=== PATIENT | female | born 1970 | race Caucasian/White ===

== ENCOUNTER 2023-09-22 08:37 | Outpatient (CLI) | payer OTHER, SELFPAY ==
--- NOTE | ~2023-09-22 | XR_ITS ---
EXAMINATION: XR barium swallow DATE: 09/22/2023 09:16 INDICATION: Dysphagia TECHNIQUE: The patient drank thick barium, gas-producing crystals, and thin barium. Fluoroscopic spot radiographs of the hypopharynx and esophagus were obtained. Fluoroscopy exposure time was 1.7 minut es. A total of 1219 fluoroscopic images were recorded. Total DAP was 6.851 Gycm^2 COMPARISON: None. FINDINGS: The pharynx is symmetric and without evidence of mass lesion or mucosal irregularity. The e sophagus is normal without mass or stricture. Esophageal motility is normal. There is no hiatal herni a. There was no gastroesophageal reflux with provocative maneuvers. IMPRESSION: 1. Normal esophagram. Reviewed, dictated and finalized at location A. IMPRESSION: 1. Normal esophagram.
== END 2023-09-22 08:38 | disposition home or self-care (01) ==
PROVIDERS: PCP Family Medicine; Visit Provider Nurse Practitioner Family
DX: R13.10 Dysphagia, unspecified (principal)
CPT/HCPCS: 74220

== ENCOUNTER 2024-01-19 12:14 | Emergency (ER) | payer OTHER, SELFPAY ==
--- NOTE | ~2024-01-19 | XR_ITS ---
EXAMINATION: XR chest 2V DATE: 01/19/2024 12:49 INDICATION: Cough and wheezing. TECHNIQUE: Frontal and lateral views of the chest were obtained. COMPARISON: Chest 2 views 01/24/2017 FINDINGS: There is no pneumonia, pleural effusion, or pneumothorax. The heart size is normal. There i s a prominent left pericardial fat pad. IMPRESSION: 1. No acute cardiopulmonary disease. Reviewed, dictated and finalized at location A.
[2024-01-19 12:24] VITALS: BP 170/91; PULSE 101; RESP 18; TEMP 37.3; O2SAT 94
--- NOTE | 2024-01-19 12:35 | ED.URI ---
HPI - URI/Sore Throat General Chief Complaint: Upper Respiratory Infection Stated Complaint: Cough/Sinus Time Seen by Provider: 01/19/24 12:36 Source: patient, RN notes reviewed and old records reviewed Mode of arrival: ambulatory Limitations: no limitations History of Present Illness HPI Narrative: 53-year-old female presents to the [facility] with cough, sinus issues for 4-6 weeks. Has tried [id number] products no relief. Treatments prior to arrival: cold medicine Related Data Home Medications Medication Instructions Recorded Confirmed ibuprofen 600 mg tablet 600 mg PO TID 06/09/20 01/19/24 Allergies Allergy/AdvReac Type Severity Reaction Status Date / Time No Known Allergies Allergy Verified 01/19/24 12:20 Review of Systems Review of Systems: All systems reviewed & are unremarkable except as noted in HPI and below Constitutional: Constitutional: Reports no additional constitutional complaints Eyes: Eyes: Reports no additional eye complaints ENT: Reports as per HPI Cardiovascular: Cardiovascular: Reports no additional cardiovascular complaints, Denies chest pain and Denies dyspnea Respiratory: Respiratory: Reports as per HPI, Reports chest congestion, Reports cough, Denies dyspnea and Reports wheezing Gastrointestinal: Gastrointestinal: Reports no additional gastrointestinal complaints, Denies abdominal pain, Denies nausea and Denies vomiting Musculoskeletal: Musculoskeletal: Reports no additional musculoskeletal complaints Integumentary/Breasts: Skin/Breast: Reports system reviewed and no additional complaints, except as docu Neurologic: Reports system reviewed and no additional complaints, except as documented Psychiatric: Psychiatric: Reports no additional psychiatric complaints Allergic/Immunologic: Allergic/Immunologic: Reports no additional allergic/immunologic complaints PMFSH Past Medical History Medical History Allergies Anxiety Arthritis COPD (chronic obstructive pulmonary disease) Hypertension Neck pain Radiculopathy affecting upper extremity Surgical History Surgical History H/O carpal tunnel repair H/O prior ablation treatment Family History Family History Father Lung cancer Hypertension Mother Lung cancer COPD (chronic obstructive pulmonary disease) Sibling Thyroid disorder Grandparent Heart disease Cerebrovascular accident Social History Social History Smoking packs per day: 0.5 Smoking cigarettes per day: 10.0 Years smoked: 30 Smoking pack-years: 15.00 Smoking status: Current every day smoker Tobacco type: cigarettes Second hand tobacco smoke exposure: Yes Alcohol intake: current Alcohol use details: Social Substance use: never Substance use type: does not use Living arrangements: with family Occupation/Education: occupation Gender identity (if verbalized by the patient): Female Comments At the time of my signature, I reviewed and agree with the nursing past medical, surgical, social, and family history. There is no relevant family history pertinent to the patient complaint. Exam Const: General: cooperative, healthy appearing, comfortable, no acute distress, well developed, alert and well nourished Nutritional Appearance: well nourished Orientation/consciousness: patient oriented x3 Limitations: no limitations HENMT: Head: normal to inspection Ears: hearing grossly normal bilaterally and external ears normal Face/Nose/Sinus: Normal external nose present, Normal nares present, Normal nasal mucous membranes and turbinates present, normal facial exam and face symmetric Face and sinus: normal facial exam and face symmetric Eyes: General: appearance normal, both eyes and all related structures A
[2024-01-19] MEDS: ALBUTEROL SULFATE NEB 2.5 MG/3 ML INH INHALATION (12:55)
[2024-01-19] MEDS: IPRATROPIUM BR 0.02% INH SOLN 0.5 MG/2.5 ML VIAL INHALATION (12:57)
[2024-01-19 13:35] VITALS: BP 150/80; PULSE 92; RESP 20; O2SAT 92
== END 2024-01-19 13:47 | disposition home or self-care (01) ==
PROVIDERS: Emergency Provider Nurse Practitioner; PCP Family Medicine
DX: J40 Bronchitis, not specified as acute or chronic (principal); F17.210 Nicotine dependence, cigarettes, uncomplicated; J44.9 Chronic obstructive pulmonary disease, unspecified; I10 Essential (primary) hypertension; M19.90 Unspecified osteoarthritis, unspecified site
CPT/HCPCS: 71046; 94640; 99213; G0463

== ENCOUNTER 2024-03-11 13:41 | Outpatient (CLI) | payer OTHER, SELFPAY | END 2024-03-11 13:42 | disposition home or self-care (01) | LOC: ANHPFT 13:41 | PROVIDERS: PCP Family Medicine; Visit Provider Family Medicine | DX: J44.9 Chronic obstructive pulmonary disease, unspecified (principal) | CPT/HCPCS: 94060; 94726; 94729 ==

== ENCOUNTER 2024-04-26 12:31 | Outpatient (CLI) | payer OTHER, SELFPAY ==
--- NOTE | ~2024-04-26 | CT_ITS ---
CT Scan of the Chest without Contrast: Clinical Indication: COPD Technique: Contiguous sections were acquired throughout the chest without intravenous contrast. Dose reduction technique was used on this scan by utilizing automated exposure control and iterative recon struction technique. The dose-length product (DLP) was 175.57 mGy-cm. Findings: There is no evidence of any significant mediastinal, hilar or axillary lymphadenopathy. The mediastin al soft tissues appear normal. There is no evidence of pleural or pericardial effusion. The lungs are clear. No pulmonary nodules or infiltrates are noted. Probable minimal emphysema. Images through the upper abdomen reveal no abnormalities. Impression: Minimal emphysema. Clear lungs. Reviewed, dictated and finalized at location . RANCHER Impression: Minimal emphysema. Clear lungs.
== END 2024-04-26 12:32 | disposition home or self-care (01) ==
PROVIDERS: PCP Family Medicine; Visit Provider Student in an Organized Health Care Education/Training Program
DX: J44.9 Chronic obstructive pulmonary disease, unspecified (principal)
CPT/HCPCS: 71250

== ENCOUNTER 2024-05-06 15:30 | Outpatient (CLI) | payer OTHER, SELFPAY ==
[2024-05-06 16:38] LABS: Influenza A QL RT-PCR Negative (Negative); Influenza B QL RT-PCR Negative (Negative); RSV RNA, RT-PCR Negative (Negative); SARS-CoV-2 RNA PCR Negative (Negative)
== END 2024-05-06 15:31 | disposition home or self-care (01) ==
PROVIDERS: PCP Family Medicine; Visit Provider Family Medicine
DX: J06.9 Acute upper respiratory infection, unspecified (principal); Z20.822 Contact with and (suspected) exposure to COVID-19
CPT/HCPCS: 87637

== ENCOUNTER 2025-01-30 08:43 | Outpatient (CLI) | payer OTHER, SELFPAY ==
--- NOTE | 2025-01-30 08:50 | EST_ITS ---
Patient Info Name: Diandra Holder Age: 54 years : 1970 Gender: Female Ht: 63 in Wt: 160 lbs BSA: 1.82 m2 Exam Date: 01/30/2025 8:50 AM Patient Status: O Admit Date: 01/30/2025 Exam Type: CA stress test treadmill A treadmill exercise stress test was performed. Staff Attending Provider: Wero Diaz DO Exercise Technologist: Tonja Lam Summary 1. 1. Negative Dustin exercise stress test for ischemic ST changes by ECG criteria. 2. 2. Poor functional capacity, achieving 4.6 METs of workload. 3. 3. Baseline hypertension with hypertensive response to exercise. 4. 4. Rapid HR response to exercise. 5. 5. Appropriate HR recovery at 1 minute post exercise. 6. 6. No imaging with stress testing. 7. 7. Patient informed of the above results. Protocol: Dustin Stress ECG Details Stage: REST Duration (min): 0 min : 39 sec Speed (mph): 0.0 Grade (%): 0 HR (bpm): 99 SBP (mmHg): 145 DBP (mmHg): 94 METS: --- Stage: REST Duration (min): 10 min : 38 sec Speed (mph): 0.0 Grade (%): 0 HR (bpm): 100 SBP (mmHg): 145 DBP (mmHg): 94 METS: --- Stage: STAGE 1 Duration (min): 1 min : 0 sec Speed (mph): 1.7 Grade (%): 10 HR (bpm): 141 SBP (mmHg): 145 DBP (mmHg): 94 METS: --- Stage: STAGE 1 Duration (min): 2 min : 0 sec Speed (mph): 1.7 Grade (%): 10 HR (bpm): 159 SBP (mmHg): 145 DBP (mmHg): 94 METS: --- Stage: STAGE 1 Duration (min): 2 min : 0 sec Speed (mph): 1.7 Grade (%): 10 HR (bpm): 160 SBP (mmHg): 145 DBP (mmHg): 94 METS: --- Stage: RECOVERY Duration (min): 0 min : 59 sec Speed (mph): 0.0 Grade (%): 0 HR (bpm): 143 SBP (mmHg): 81 DBP (mmHg): 63 METS: --- Stage: RECOVERY Duration (min): 1 min : 59 sec Speed (mph): 0.0 Grade (%): 0 HR (bpm): 115 SBP (mmHg): 231 DBP (mmHg): 83 METS: --- Stage: RECOVERY Duration (min): 2 min : 59 sec Speed (mph): 0.0 Grade (%): 0 HR (bpm): 113 SBP (mmHg): 215 DBP (mmHg): 83 METS: --- Stage: RECOVERY Duration (min): 3 min : 59 sec Speed (mph): 0.0 Grade (%): 0 HR (bpm): 117 SBP (mmHg): 215 DBP (mmHg): 83 METS: --- Stage: RECOVERY Duration (min): 4 min : 59 sec Speed (mph): 0.0 Grade (%): 0 HR (bpm): 106 SBP (mmHg): 165 DBP (mmHg): 84 METS: --- Stage: RECOVERY Duration (min): 5 min : 59 sec Speed (mph): 0.0 Grade (%): 0 HR (bpm): 108 SBP (mmHg): 165 DBP (mmHg): 84 METS: --- Stage: RECOVERY Duration (min): 6 min : 59 sec Speed (mph): 0.0 Grade (%): 0 HR (bpm): 109 SBP (mmHg): 156 DBP (mmHg): 86 METS: --- Stage: RECOVERY Duration (min): 7 min : 59 sec Speed (mph): 0.0 Grade (%): 0 HR (bpm): 111 SBP (mmHg): 156 DBP (mmHg): 86 METS: --- Stage: RECOVERY Duration (min): 8 min : 59 sec Speed (mph): 0.0 Grade (%): 0 HR (bpm): 107 SBP (mmHg): 149 DBP (mmHg): 88 METS: --- Stage: RECOVERY Duration (min): 9 min : 59 sec Speed (mph): 0.0 Grade (%): 0 HR (bpm): 104 SBP (mmHg): 149 DBP (mmHg): 88 METS: --- Stage: RECOVERY Duration (min): 10 min : 59 sec Speed (mph): 0.0 Grade (%): 0 HR (bpm): 107 SBP (mmHg): 147 DBP (mmHg): 93 METS: --- Stage: RECOVERY Duration (min): 11 min : 19 sec Speed (mph): 0.0 Grade (%): 0 HR (bpm): 105 SBP (mmHg): 147 DBP (mmHg): 93 METS: --- Rest HR: 100 bpm Peak HR: 163 bpm Rest Sys BP: 145 mmHg Peak Sys BP: 231 mmHg Max Pred HR: 164 bpm % Max Pred HR: 99 % Target HR: 139 bpm Max RPP: 37,653 bpm*mmHg Munroe Score: -5 BP Response: Patient exhibited a hypertensive response with stress Termination Reason: Reached target heart rate or workload Cardiac Symptoms: Shortness of breath Max ST Seg Deviation: 1.40 mm Total Time: 2 min : 0 sec Rest Arreaga BP: 94 mmHg Peak Arreaga BP: 83 mmHg Angina Score: None Total METS: 4.6 Resting ECG Sinus tachycardia. Stress ECG No ST changes. Arrhythmias None. Report Signatures
== END 2025-01-30 08:44 | disposition home or self-care (01) ==
LOC: ANHCARD 08:43
PROVIDERS: PCP Family Medicine; Visit Provider Internal Medicine Cardiovascular Disease
DX: R07.9 Chest pain, unspecified (principal)
CPT/HCPCS: 93017

== ENCOUNTER 2025-03-26 14:21 | Outpatient (CLI) | payer OTHER, SELFPAY ==
--- NOTE | ~2025-03-26 | CT_ITS ---
EXAMINATION:CT lung screening DATE: 03/26/2025 14:55 INDICATION: 30 pack-year history of smoking. TECHNIQUE: Computed tomography (CT) of the chest was performed without intravenous contrast. Automated exposure control and iterative reconstruction technique were employed. The dose-length product (DLP) was 75.19 mGy-cm. COMPARISON: CT chest dated 04/26/2024. FINDINGS: Moderate centrilobular pattern of emphysema of lungs. No solid pulmonary mass or nodule are seen. Partial atelectasis of right middle lobe. No lymphadenopathy or effusion. Major airways do not show focal lesions. No significant coronary vascular calcification. Small hiatus hernia. IMPRESSION: 1. Centrilobular pattern of emphysema lungs. Mild partial atelectasis in the right middle lobe. No solid pulmonary lesions. Continue annual low-dose screening. Lung RADS category 2 Reviewed, dictated and finalized at location T. RITIES COMPLIANCE EXAMINER IMPRESSION: 1. Centrilobular pattern of emphysema lungs. Mild partial atelectasis in the ri ght middle lobe. No solid pulmonary lesions. Continue annual low-dose screening . Lung RADS category 2
== END 2025-03-26 14:22 | disposition home or self-care (01) ==
PROVIDERS: PCP Student in an Organized Health Care Education/Training Program; Visit Provider Student in an Organized Health Care Education/Training Program
DX: Z12.2 Encounter for screening for malignant neoplasm of respiratory organs (principal); Z87.891 Personal history of nicotine dependence; J43.2 Centrilobular emphysema
CPT/HCPCS: 71271